=== PATIENT | female | born 1980 | race Caucasian/White ===

== ENCOUNTER 2019-01-03 01:54 | Emergency (ER) | payer OTHER, MEDICAID, SELFPAY ==
[2019-01-03 02:07] VITALS: BP 147/100; PULSE 101; RESP 20; TEMP 36.6; O2SAT 99; BMI 39.0
--- NOTE | 2019-01-03 03:00 | ED.FEMALEGU ---
HPI - Female Genitourinary General Chief complaint: Urogenital-Female Stated complaint: INTER CLABIA ITCHES SWOLLEN Time Seen by Provider: 01/03/19 02:53 Source: patient Mode of arrival: ambulatory Limitations: no limitations History of Present Illness HPI Narrative: Patient is a 38-year-old female who presents with vaginal itching and swelling. She said she noticed some itching this afternoon no gross discharge or foul smells. This evening after her shower she noticed that her right labia minora was slightly swollen and she said it felt hard to her. She is in continues to itch. She has not had any fever chills no painful or frequent urination. MD Complaint: genital swelling Onset (ago): hour(s) Location: labia Severity: mild Quality: Itching Related Data Previous Rx's Medication Instructions Recorded fluconazole [Diflucan] 200 mg PO DAILY #1 tab 01/03/19 Review of Systems Review of Systems ROS Unobtainable: All systems reviewed & are unremarkable except as noted in HPI and below Constitutional Denies chills, Denies fever(s), Denies lethargy and Denies weakness Cardiovascular Denies chest pain, Denies irregular heart rhythm, Denies lightheadedness, Denies palpitations, Denies dyspnea, Denies dyspnea on exertion and Denies orthopnea Respiratory Denies cough, Denies dyspnea, Denies dyspnea on exertion and Denies wheezing Gastrointestinal Gastrointestinal: Denies abdominal pain, Denies change in bowel habits, Denies diarrhea, Denies nausea and Denies vomiting Genitourinary Reports as per HPI Musculoskeletal Denies back pain, Denies muscle weakness, Denies numbness and Denies tingling Integumentary/Breasts Denies pruritus, Denies erythema, Denies rash and Denies wounds Neurologic Denies numbness, Denies tingling and Denies weakness Endocrine Denies palpitations Allergic/Immunologic Denies wheezing FORMERLY [facility] Medical History Patient denies significant medical history (Acute) Social History Smoking Status: Never smoker Social History Smoking Status: Never smoker Exam Initial Vital Signs Initial Vital Signs: Vital Signs Temperature 98 F 01/03/19 02:07 Pulse Rate 101 H 01/03/19 02:07 Respiratory Rate 20 01/03/19 02:07 Blood Pressure 147/100 H 01/03/19 02:07 Pulse Oximetry 99 01/03/19 02:07 GENERAL: Well-appearing, well-nourished and in no acute distress. CARDIOVASCULAR: peripheral pulses in tact, cap refill <2 sec RESPIRATORY: No respiratory distress, speaks in full sentences without difficulty [ABDOMEN: Soft, nontender, no guarding or rebound : slight white discharge not thick or right labia minora is slightly thickened is no fluctuation nontender EXTREMITIES: Normal range of motion, no clubbing or edema. Neurovascularly intact NEUROLOGICAL: Cranial nerves II through XII grossly intact. Normal gait and speech. SKIN: Warm, dry, no petechiae, no rashes or lesions. Course Vital Signs - 8 hr 01/03/19 02:07 01/03/19 03:34 Temperature 98 F Pulse Rate 101 H 88 Respiratory Rate 20 18 Blood Pressure 147/100 H 138/88 Pulse Oximetry 99 99 MDM - Female Genitourinary Lab Data Point of Care Testing Test Results Negative Urine Dip Bedside Urine Glucose Negative Bedside Urine Bilirubin - Negative Bedside Urine Ketone - Negative Urine Specific [place] 1.010 Bedside Urine Occult Blood + Bedside Urine pH 6.0 Bedside Urine Protein - Negative Bedside Urine Urobilinogen - Negative Bedside Urine Nitrite - Negative Bedside Urine Leukocytes - Negative Esterase Discharge Plan Departure Patient Disposition: Home Clinical Impression: Candidiasis of vagina Discharge Date/Time: 01/03/19 03:34 Interventions: ED Discharge Assessment Last Done: 01/03/19 03:34 Instructions: Vaginal Yeast Infection Activity Restrictions/Additional Instructions: *You have been diagnosed with vaginal candidiasis *What to do: at this time likely yeast infection. if itching in symptoms are worsening or still persisting recommend following up with her PCP or OBGYN *Continue to take medications as directed Diflucan 200 mg x1 *Follow up with your primary care provider in 2-3 days *Return to ER if you should have worsening itching, increased swelling or pain or any new, worsening or concerning symptoms Prescriptions: New fluconazole [Diflucan] 200 mg tablet 200 mg PO DAILY Qty: 1 RF: 0
[2019-01-03 03:34] VITALS: BP 138/88; PULSE 88; RESP 18; O2SAT 99
== END 2019-01-03 03:34 | disposition home or self-care (01) ==
PROVIDERS: Emergency Provider Emergency Medicine
DX: B37.3 Candidiasis of vulva and vagina (principal)
CPT/HCPCS: 81003; 81025; 99282; 99283

== ENCOUNTER 2019-01-10 20:55 | Emergency (ER) | payer OTHER, MEDICAID, SELFPAY ==
[2019-01-10 21:05] VITALS: BP 159/84; PULSE 102; RESP 20; TEMP 36.9; O2SAT 96; BMI 38.9
--- NOTE | 2019-01-10 21:12 | ED.FEMALEGU ---
HPI - Female Genitourinary <Shannan Burt PA-C - Last Filed: 01/10/19 21:59> General Chief complaint: Urogenital-Female Stated complaint: Pain and swollen labia Time Seen by Provider: 01/10/19 21:11 Source: patient Mode of arrival: ambulatory Limitations: no limitations History of Present Illness HPI Narrative: This 38-year-old female returns to ED after seen last week due to persistent right labial area pain. She states that last week, she had some itching and that got better after taking Diflucan. She felt like there was a little nodule or some firmness in the area that she describes as a knot. she thinks maybe that got a little bit worse since last week. It is tender. She states that she has been working out and today feels like she needs to walk bowlegged secondary to the irritation. She states that she looked and there was some swelling, like a blood blister. She states that this drained while she was showering, some blood and maybe some pus. 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 She states that she has been wearing loose shorts when she works out. She denies any urinary symptoms. Denies any STD concerns or discharge (she has never been sexually active). She has not had fever, denies other lesions or other new complaints. She does not have a local PCP. Related Data Previous Rx's Medication Instructions Recorded fluconazole [Diflucan] 200 mg PO DAILY #1 tab 01/03/19 sulfamethoxazole-trimethoprim 1 tab PO BID 6 Days #12 tab 01/10/19 [Bactrim DS] Allergies Allergy/AdvReac Type Severity Reaction Status Date / Time No Known Drug Allergies Allergy Verified 01/10/19 21:05 Review of Systems <Shanann Burt PA-C - Last Filed: 01/10/19 21:59> Review of Systems ROS Unobtainable: All systems reviewed & are unremarkable except as noted in HPI and below PFSH <Shannan Burt PA-C - Last Filed: 01/10/19 21:59> Medical History No pertinent family history (Chronic) Patient denies significant medical history (Chronic) Surgical History No pertinent past surgical history (Chronic) Social History Smoking Status: Never smoker Social History Smoking Status: Never smoker Exam <Shannan Burt PA-C - Last Filed: 01/10/19 21:59> Narrative Exam Narrative: GENERAL APPEARANCE: Patient sitting comfortably, in no distress. LUNGS: Clear to auscultation bilaterally. HEART: Rate and rhythm regular without murmur, normal S1 and S2, no S3 or S4. : Right inner labia there is a 5 mm erythematous nodule, slightly indurated, no fluctuance, tender to touch. There is a small central opening with a scab on the medial side. No surrounding erythema. Unable to express any drainage. No other visible lesions. There is a scant amount of opaque mucoid discharge noted. Initial Vital Signs Initial Vital Signs: Vital Signs Temperature 98.4 F 01/10/19 21:05 Pulse Rate 102 H 01/10/19 21:05 Respiratory Rate 20 01/10/19 21:05 Blood Pressure 159/84 H 01/10/19 21:05 Pulse Oximetry 96 01/10/19 21:05 <Jeffrey Haque DO - Last Filed: 01/11/19 00:58> Initial Vital Signs Initial Vital Signs: Vital Signs Temperature 98.4 F 01/10/19 21:05 Pulse Rate 102 H 01/10/19 21:05 Respiratory Rate 20 01/10/19 21:05 Blood Pressure 159/84 H 01/10/19 21:05 Pulse Oximetry 96 01/10/19 21:05 Course <Shannan Burt PA-C - Last Filed: 01/10/19 21:59> Orders Ordered: Discontinued Medications Ibuprofen (Advil) 800 mg PO NOW ONE Stop: 01/10/19 21:32 Last Admin: 01/10/19 21:52 Dose: 800 mg Trimethoprim/Sulfamethoxazole (Bactrim Ds Prepack) 1 bottle MISC SEEINSTR ONE Stop: 01/10/19 21:32 Last Admin: 01/10/19 21:53 Dose: 1 bottle Vital Signs - 8 hr 01/10/19 21:05 01/10/19 22:07 Temperature 98.4 F Pulse Rate 102 H 96 H Respiratory Rate 20 14 Blood Pressure 159/84 H 128/71 Pulse Oximetry 96 95 <Jeffrey [place], DO - Last Filed: 01/11/19 00:58> Orders Ordered: Discontinued Medications Ibuprofen (Advil) 800 mg PO NOW ONE Stop: 01/10/19 21:32 Last Admin: 01/10/19 21:52 Dose: 800 mg Trimethoprim/Sulfamethoxazole (Bactrim Ds Prepack) 1 bottle MISC SEEINSTR ONE Stop: 01/10/19 21:32 Last Admin: 01/10/19 21:53 Dose: 1 bottle Vital Signs - 8 hr 01/10/19 21:05 01/10/19 22:07 Temperature 98.4 F Pulse Rate 102 H 96 H Respiratory Rate 20 14 Blood Pressure 159/84 H 128/71 Pulse Oximetry 96 95 Discharge Plan Departure Patient Disposition: Home Clinical Impression: Abscess of right genital labia Discharge Date/Time: 01/10/19 22:07 Interventions: ED Discharge Assessment Last Done: 01/10/19 22:07 Instructions: DI for Vulvar Abscess Activity Restrictions/Additional Instructions: Based on exam and what you have described to me today, I think you had a very small abscess on your right labia. It sounds like this drained partially while you were in the shower. Please use a hot washcloth on the area several times daily (or you can take a warm bath) to help express any additional pus or drainage that may be present. Wear loose fitting clothing. You can use a little lubricant for irritation, or vaginosis ill if you prefer. Please take ibuprofen, 6-800 mg every 8 hr to help with pain and inflammation. 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 I also refilled your yeast infection medicine as sometimes antibiotics will cause yeast infections to come back. You can restart that medication if you notice discharge and itching again. You can take it every 3 days (up to 3 doses). Please return if you have any acutely worsening swelling over the weekend or new symptoms such as fever. Otherwise, please call the Gynecology Clinic at [facility] 1st thing on Sunday. Let them know that you were seen at the emergency room and need to arrange a follow-up (you should Sunday or Sunday if you are not making progress by then in terms of pain and swelling). I have given you Dr. Crouch's name as she is process control programmer [facility] but you can see any of the doctors there. Prescriptions: New sulfamethoxazole-trimethoprim [Bactrim DS] 800-160 mg tablet 1 tab PO BID 6 Days Qty: 12 RF: 0 No Action fluconazole [Diflucan] 200 mg tablet 200 mg PO DAILY Qty: 1 RF: 0 Referrals: Sara Crouch MD [Physician] - <Jeffrey Haque DO - Last Filed: 01/11/19 00:58> Cosign ED Attending Arunaature Attestation: I was immediately available in the department for consultation. Documentation has been reviewed. I agree with assessment and plan.
--- NOTE | 2019-01-10 21:49 | ED_ITS ---
HPI - Female Genitourinary <Shannan Burt PA-C - Last Filed: 01/10/19 21:59> General Chief complaint: Urogenital-Female Stated complaint: Pain and swollen labia Time Seen by Provider: 01/10/19 21:11 Source: patient Mode of arrival: ambulatory Limitations: no limitations History of Present Illness HPI Narrative: This 38-year-old female returns to ED after seen last week due to persistent right labial area pain. She states that last week, she had some itching and that got better after taking Diflucan. She felt like there was a little nodule or some firmness in the area that she describes as a knot. she thinks maybe that got a little bit worse since last week. It is tender. She states that she has been working out and today feels like she needs to walk bowlegged secondary to the irritation. She states that she looked and there was some swelling, like a blood blister. She states that this drained while she was showering, some blood and maybe some pus. 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 She states that she has been wearing loose shorts when she works out. She denies any urinary symptoms. Denies any STD concerns or discharge (she has never been sexually active). She has not had fever, denies other lesions or other new complaints. She does not have a local PCP. Related Data Previous Rx's Medication Instructions Recorded fluconazole [Diflucan] 200 mg PO DAILY #1 tab 01/03/19 sulfamethoxazole-trimethoprim 1 tab PO BID 6 Days #12 tab 01/10/19 [Bactrim DS] Allergies Allergy/AdvReac Type Severity Reaction Status Date / Time No Known Drug Allergies Allergy Verified 01/10/19 21:05 Review of Systems <Shannan Burt PA-C - Last Filed: 01/10/19 21:59> Review of Systems ROS Unobtainable: All systems reviewed & are unremarkable except as noted in HPI and below PFSH <Shannan Burt PA-C - Last Filed: 01/10/19 21:59> Medical History No pertinent family history (Chronic) Patient denies significant medical history (Chronic) Surgical History No pertinent past surgical history (Chronic) Social History Smoking Status: Never smoker Social History Smoking Status: Never smoker Exam <Shannan Burt PA-C - Last Filed: 01/10/19 21:59> Narrative Exam Narrative: GENERAL APPEARANCE: Patient sitting comfortably, in no distress. LUNGS: Clear to auscultation bilaterally. HEART: Rate and rhythm regular without murmur, normal S1 and S2, no S3 or S4. : Right inner labia there is a 5 mm erythematous nodule, slightly indurated, no fluctuance, tender to touch. There is a small central opening with a scab on the medial side. No surrounding erythema. Unable to express any drainage. No other visible lesions. There is a scant amount of opaque mucoid discharge noted. Initial Vital Signs Initial Vital Signs: Vital Signs Temperature 98.4 F 01/10/19 21:05 Pulse Rate 102 H 01/10/19 21:05 Respiratory Rate 20 01/10/19 21:05 Blood Pressure 159/84 H 01/10/19 21:05 Pulse Oximetry 96 01/10/19 21:05 <Jeffrey Haque DO - Last Filed: 01/11/19 00:58> Initial Vital Signs Initial Vital Signs: Vital Signs Temperature 98.4 F 01/10/19 21:05 Pulse Rate 102 H 01/10/19 21:05 Respiratory Rate 20 01/10/19 21:05 Blood Pressure 159/84 H 01/10/19 21:05 Pulse Oximetry 96 01/10/19 21:05 Course <Shannan Burt PA-C - Last Filed: 01/10/19 21:59> Orders Ordered: Discontinued Medications Ibuprofen (Advil) 800 mg PO NOW ONE Stop: 01/10/19 21:32 Last Admin: 01/10/19 21:52 Dose: 800 mg Trimethoprim/Sulfamethoxazole (Bactrim Ds Prepack) 1 bottle MISC SEEINSTR ONE Stop: 01/10/19 21:32 Last Admin: 01/10/19 21:53 Dose: 1 bottle Vital Signs - 8 hr 01/10/19 21:05 01/10/19 22:07 Temperature 98.4 F Pulse Rate 102 H 96 H Respiratory Rate 20 14 Blood Pressure 159/84 H 128/71 Pulse Oximetry 96 95 <Jeffrey [place], DO - Last Filed: 01/11/19 00:58> Orders Ordered: Discontinued Medications Ibuprofen (Advil) 800 mg PO NOW ONE Stop: 01/10/19 21:32 Last Admin: 01/10/19 21:52 Dose: 800 mg Trimethoprim/Sulfamethoxazole (Bactrim Ds Prepack) 1 bottle MISC SEEINSTR ONE Stop: 01/10/19 21:32 Last Admin: 01/10/19 21:53 Dose: 1 bottle Vital Signs - 8 hr 01/10/19 21:05 01/10/19 22:07 Temperature 98.4 F Pulse Rate 102 H 96 H Respiratory Rate 20 14 Blood Pressure 159/84 H 128/71 Pulse Oximetry 96 95 Discharge Plan Departure Patient Disposition: Home Clinical Impression: Abscess of right genital labia Discharge Date/Time: 01/10/19 22:07 Interventions: ED Discharge Assessment Last Done: 01/10/19 22:07 Instructions: DI for Vulvar Abscess Activity Restrictions/Additional Instructions: Based on exam and what you have described to me today, I think you had a very small abscess on your right labia. It sounds like this drained partially while you were in the shower. Please use a hot washcloth on the area several times daily (or you can take a warm bath) to help express any additional pus or drainage that may be present. Wear loose fitting clothing. You can use a little lubricant for irritation, or vaginosis ill if you prefer. Please take ibuprofen, 6-800 mg every 8 hr to help with pain and inflammation. Take the 2nd dose of antibiotic that we gave you in the morning, and order picker the rest of the prescription at the pharmacy tomorrow. I also refilled your yeast infection medicine as sometimes antibiotics will cause yeast infections to come back. You can restart that medication if you notice discharge and itching again. You can take it every 3 days (up to 3 doses). Please return if you have any acutely worsening swelling over the weekend or new symptoms such as fever. Otherwise, please call the Gynecology Clinic at [facility] 1st thing on Sunday. Let them know that you were seen at the emergency room and need to ar range a follow-up (you should Sunday or Sunday if you are not making progress by then in terms of pain and swelling). I have given you Dr. Crouch's name as she is sail repair person [facility] but you can see any of the doctors there. Prescriptions: New sulfamethoxazole-trimethoprim [Bactrim DS] 800-160 mg tablet 1 tab PO BID 6 Days Qty: 12 RF: 0 No Action fluconazole [Diflucan] 200 mg tablet 200 mg PO DAILY Qty: 1 RF: 0 Referrals: Sara Crouch MD [Physician] - <Jeffrey Haque DO - Last Filed: 01/11/19 00:58> Cosign ED Attending Arunaature Attestation: I was immediately available in the department for consultation. Documentation has been reviewed. I agree with assessment and plan.
[2019-01-10] MEDS: IBUPROFEN 400 MG TABLET 800 MG PO (21:52)
[2019-01-10] MEDS: TRIMETH/SULFA 160/800 PREPACK 1 BOTTLE MISC (21:53)
--- NOTE | 2019-01-10 21:59 | PC.NURSE ---
I agree with all assessments and treatments completed by the student nurse.
--- NOTE | 2019-01-10 22:06 | PC.NURSE ---
Pt had swelling and a small abscess on her right labia that had already been partially drained.
[2019-01-10 22:07] VITALS: BP 128/71; PULSE 96; RESP 14; O2SAT 95
== END 2019-01-10 22:07 | disposition home or self-care (01) ==
PROVIDERS: Emergency Provider Internal Medicine
DX: N76.4 Abscess of vulva (principal)
CPT/HCPCS: 99282

== ENCOUNTER 2021-06-15 10:07 | Emergency (ER) | payer OTHER, SELFPAY ==
[2021-06-15 10:14] VITALS: BP 135/77; PULSE 99; RESP 20; TEMP 38.1; O2SAT 90; BMI 40.3
[2021-06-15 10:15] VITALS: BP 135/77; PULSE 99; O2SAT 92
[2021-06-15 10:23] VITALS: O2SAT 93
[2021-06-15 10:30] VITALS: PULSE 83; O2SAT 93
--- NOTE | 2021-06-15 10:44 | ED.URI ---
HPI - URI/Sore Throat General Chief Complaint: Shortness of Breath/Dyspnea Stated Complaint: SOB/FEVER/DRY HEAVES/NAUSEA Time Seen by Provider: 06/15/21 10:26 Source: patient Mode of arrival: Ambulatory Limitations: no limitations History of Present Illness HPI Narrative: Patient is a 40-year-old female who has a known COVID positive patient.. Here with her mother who is requiring oxygen. She states that she has been feeling nauseous she has fever she denies any worsening shortness of breath or chest pain. She is not vomiting no abdominal pain. Trying to drink fluids but feels queasy. Related Data Previous Rx's Medication Instructions Recorded fluconazole 200 mg tablet 200 mg PO DAILY #1 tab 01/03/19 (Diflucan) ondansetron 4 mg disintegrating 4 mg PO Q8H PRN #10 tab 06/15/21 tablet Allergies Allergy/AdvReac Type Severity Reaction Status Date / Time No Known Drug Allergies Allergy Verified 06/15/21 10:18 Review of Systems Review of Systems Narrative: GENERAL: Denies chills, fatigue, malaise, fever, sweats, travel HEENT: Denies sinus pain, ear pain, sore throat, difficulty swallowing, neck pain RESPIRATORY: Denies dyspnea, cough, wheezing, hemoptysis, sputum. CARDIOVASCULAR: Denies chest pain, palpitations, orthopnea, edema GASTROINTESTINAL: See HPI : Denies dysuria, frequency, incontinence, hematuria, urinary retention, flank pain. MUSCULOSKELETAL: Denies weakness, joint pain, or bony pain SKIN: No rash, no erythema, no pruritus NEUROLOGIC: Denies weakness, dizziness, headache, numbness, change in speech, confusion PSYCHIATRIC: No concerning psychosocial issues. 12 point review of systems is negative except for those stated above and HPI Patient History Medical History (Updated 06/15/21 @ 10:59 by Alecia Ryan DO) No pertinent family history Patient denies significant medical history Surgical History (Updated 01/10/19 @ 21:47 by Shannan Burt PA-C) No pertinent past surgical history Social History Smoking Status: Never smoker Smoking Status: Never smoker alcohol intake frequency: holidays/special occasions only Substance Use Type: does not use Exam Initial Vital Signs Initial Vital Signs: Vital Signs Temperature 100.6 F H 06/15/21 10:14 Pulse Rate 99 H 06/15/21 10:14 Respiratory Rate 20 06/15/21 10:14 Blood Pressure 135/77 06/15/21 10:14 Pulse Oximetry 90 L 06/15/21 10:14 GENERAL: Well-appearing, well-nourished and in no acute distress. HEENT: Head atraumatic,EOMI, pupils reactive, face symmetric, CARDIOVASCULAR: Regular rate and rhythm without murmurs, rubs or gallops. RESPIRATORY: Breath sounds equal bilaterally, no wheezes rales or rhonchi. ABDOMEN: Soft, nontender. Normoactive bowel sounds all 4 quadrants. No guarding or rebound. No right upper quadrant EXTREMITIES: Normal range of motion, no clubbing or edema. Neurovascularly intact NEUROLOGICAL: Alert and oriented x4. SKIN: Warm, dry, no laceration, no petechiae, no rashes or lesions. Course Orders Ordered: Discontinued Medications Ondansetron HCl (Ondansetron 4 Mg Odt) 4 mg SL NOW ONE Stop: 06/15/21 10:45 Last Admin: 06/15/21 10:51 Dose: 4 mg Documented by: MELISSA Vital Signs Vital signs: Vital Signs - 8 hr 06/15/21 10:14 06/15/21 10:23 Temperature 100.6 F H Pulse Rate 99 H Respiratory Rate 20 Blood Pressure 135/77 Pulse Oximetry 90 L 93 MDM - URI/Sore Throat MDM Narrative Medical decision making narrative: Well. She is COVID positive low-grade fever. Not requiring oxygen. At this time discussed with her quarantine and how to monitor at home. And return to the emergency department. Discharge Plan Departure Patient Disposition: Home Clinical Impression: COVID-19 Instructions: DI for COVID-19 (Suspected or Confirmed ) Activity Restrictions/Additional Instructions: *You have been diagnosed with COVID pneumonia *What to do: Please continue to quarantine. Stay hydrated. You will continue to feel ill but should start to be on the mend. At this time you do not meet admission criteria. It is still recommended that you get vaccinated and in fact strongly encouraged. Check oxygen intermittently *Continue to take medications as directed Zofran 4 mg every 8 hours if needed for nausea or vomiting--> SENT TO [facility] [place] Tylenol 1000 mg every 6 hours if needed for pain or fever *Follow up with your primary care provider in 2-3 days *Return to ER if you should have oxygen level below 90%, inability to tolerate fluids, or any new, worsening or concerning symptoms Prescriptions: New ondansetron 4 mg tablet,disintegrating 4 mg PO Q8H PRN (Reason: nausea and vomiting) Qty: 10 RF: 0 No Action fluconazole [Diflucan] 200 mg tablet 200 mg PO DAILY Qty: 1 RF: 0
[2021-06-15] MEDS: ONDANSETRON 4 MG ODT SL (10:51)
[2021-06-15 11:00] VITALS: PULSE 91; O2SAT 91
[2021-06-15 11:20] VITALS: BP 135/73; PULSE 85; RESP 18; O2SAT 91
== END 2021-06-15 11:24 | disposition home or self-care (01) ==
PROVIDERS: Emergency Provider Emergency Medicine
DX: U07.1 COVID-19 (principal)
CPT/HCPCS: 99284

== ENCOUNTER 2021-06-16 07:15 | Inpatient (IN) | payer BC, SELFPAY ==
[2021-06-16] VITALS (12 sets, daily range): BP systolic 122–150; BP diastolic 68–78; PULSE 80–103; RESP 15–24; TEMP 35.9–37.4; O2SAT 85–95; BMI 49.9; BMI 38.3
--- NOTE | 2021-06-16 07:22 | ED_ITS ---
HPI - SOB/Dyspnea General Chief Complaint: Shortness of Breath/Dyspnea Stated Complaint: DIFFICULTY BREATHING Time Seen by Provider: 06/16/21 07:22 History of Present Illness HPI Narrative: 40-year-old female nonsmoker presents with fever, chills shortness of breath and weakness. She has known COVID-19 and was not vaccinated. She was 1st exposed about 1 week ago and became symptomatic on Sunday and was tested. She started getting increasingly sick and was seen and evaluated here yesterday but had reassuring physical exam and vital signs. She was discharged home with appropriate return precautions. She returns feeling quite short of breath, high respiratory rate with pulse ox in the low 80s. She does have some nausea but denies any vomiting. She has had poor appetite. She has multiple family members that are ill as well Related Data Previous Rx's Medication Instructions Recorded fluconazole 200 mg tablet 200 mg PO DAILY #1 tab 01/03/19 (Diflucan) ondansetron 4 mg disintegrating 4 mg PO Q8H PRN #10 tab 06/15/21 tablet Allergies Allergy/AdvReac Type Severity Reaction Status Date / Time No Known Drug Allergies Allergy Verified 06/15/21 10:18 Review of Systems Review of Systems Narrative: GENERAL: See HPI HEENT: Denies sinus pain, ear pain, sore throat, difficulty swallowing, dizziness. RESPIRATORY: See HPI CARDIOVASCULAR: Denies chest pain, palpitations, orthopnea, edema, GASTROINTESTINAL: See HPI a. : Denies dysuria, frequency, incontinence, hematuria, urinary retention. MUSCULOSKELETAL: denies weakness, joint pain, or bony pain SKIN: Denies rash, skin lesions, or other NEUROLOGIC: Denies weakness, headache, numbness, change in speech, confusion, seizures, incoordination. PSYCHIATRIC: No concerning psychosocial issues. 12 point review of systems is negative except for those stated above Patient History Medical History No pertinent family history Patient denies significant medical history Surgical History No pertinent past surgical history Social History Smoking Status: Never smoker Smoking Status: Never smoker alcohol intake frequency: holidays/special occasions only Substance Use Type: does not use Exam Narrative Exam Narrative: GENERAL: [40] year old patient appears stated age. Appears unwell, increased work of breathing, room air pulse ox 84% on arrival HEAD: Atraumatic. Normocephalic. EYES: Pupils equal round and reactive. Extraocular motions intact. No scleral icterus. No injection or drainage. ENT: Nose without bleeding, purulent drainage. Throat without erythema, tonsillar hypertrophy or exudate. Airway patent. NECK: Trachea midline. Non tender CARDIOVASCULAR: Regular rate and rhythm without murmurs, gallops, or rubs. RESPIRATORY: Tachypnea, use of accessories, faint crackles throughout GASTROINTESTINAL: Abdomen soft, non-tender, nondistended. EXTREMITIES: No edema or joint tenderness. BACK: Nontender without deformity or crepitance. No flank tenderness. NEURO: AOx3. SKIN: No rash or erythema of visible areas Initial Vital Signs Initial Vital Signs: Vital Signs Pulse Rate 85 06/16/21 07:31 Blood Pressure 150/78 H 06/16/21 07:31 Pulse Oximetry 85 L 06/16/21 07:31 Course Orders Ordered: ED Orders 06/16/21 07:34 XR chest 1V Stat 06/16/21 07:40 C-Reactive Protein Quant Stat Complete Blood Count AUTO DIFF Stat Comprehensive Metabolic Panel Stat D Dimer Stat Ferritin Stat Lactate (Lactic Acid) Stat Lactate Dehydrogenase Stat NT-proBNP (BNP-Adult 18+) Stat Procalcitonin Stat Troponin & CK Cardiac Panel Stat 06/16/21 08:30 Blood Culture Stat Discontinued Medications Dexamethasone (Dexamethasone 10 Mg/Ml Vial) 6 mg IV NOW ONE Stop: 06/16/21 07:37 Last Admin: 06/16/21 08:35 Dose: 6 mg Documented by: MELISSA Remdesivir 200 mg/ Sodium (Chloride) 250 mls @ 250 mls/hr IV NOW ONE Stop: 06/16/21 07:37 Last Admin: 06/16/21 08:35 Dose: 250 mls/hr Documented by: MELISSA Vital Signs Vital signs: Vital Signs - 8 hr 06/16/21 07:31 06/16/21 07:35 06/16/21 08:00 Temperature 99.4 F Pulse Rate 85 103 H 95 H Respiratory Rate 24 24 Blood Pressure 150/78 H 150/76 H 126/75 Pulse Oximetry 85 L 85 L 95 07/29/21 08:30 Temperature Pulse Rate 89 Respiratory Rate 23 Blood Pressure 128/71 Pulse Oximetry 94 MDM - SOB/Dyspnea Lab Data Result diagrams: 06/16/21 07:40 06/16/21 07:40 Labs: Lab Results 06/16/21 06/16/21 06/16/21 Range/Units 07:40 07:40 07:40 WBC 5.2 (4.5-11.0) X10^3/uL RBC 4.51 (4.0-5.2) X10^6/uL Hgb 13.9 (12.0-16.0) g/dL Hct 41.1 (36-46) % MCV 91.2 (80-100) fL MCH 30.8 (26-34) PG MCHC 33.8 (30-36) % RDW 13.3 (11.6-14.8) % Plt Count 170 (150-400) X10^3/uL Neut % (Auto) 68.5 (50-75) % Lymph % (Auto) 28.8 (25-40) % [place] % (Auto) 2.5 L (3-14) % Eos % (Auto) 0.0 L (2-4) % Baso % (Auto) 0.2 (0-2) % Neut # (Auto) 3600 (5118-5594) /uL Lymph # (Auto) 1500 (8278-3297) /uL [place] # (Auto) 100 (0-900) /uL Eos # (Auto) 0 (0-450) /uL Baso # (Auto) 0 (0-100) /uL D-Dimer 740 H (<230) ng/mL Sodium (137-145) mmol/L Potassium (3.4-5.1) mmol/L Chloride (98-107) mmol/L Carbon Dioxide (22-32) mmol/L BUN (7-17) mg/dL Creatinine (0.52-1.04) mg/dL Estimated GFR (>60) mL/min BUN/Creatinine Ratio (6-22) Glucose (70-100) mg/dL Lactate (0.7-2.1) mmol/L Calcium (8.4-10.2) mg/dL Ferritin (6-137) ng/mL Total Bilirubin (0.2-1.3) mg/dL AST (14-36) IU/L ALT (<35) IU/L Alkaline Phosphatase (38-126) U/L Lactate Dehydrogenase (313-618) U/L Total Creatine Kinase (30-135) U/L CK-MB (CK-2) CK-MB (CK-2) Rel Index Troponin I (0.01-0.034) ng/mL C-Reactive Protein (<1.0) mg/dL NT-Pro-B Natriuret Pep (<125) pg/mL Total Protein (6.3-8.2) g/dL Albumin (3.5-5.0) g/dL Globulin (1.7-4.1) g/dL Albumin/Globulin Ratio (1.0-2.8) Procalcitonin 0.24 (<0.5) ng/mL 06/16/21 06/16/21 Range/Units 07:40 07:40 WBC (4.5-11.0) X10^3/uL RBC (4.0-5.2) X10^6/uL Hgb (12.0-16.0) g/dL Hct (36-46) % MCV (80-100) fL MCH (26-34) PG MCHC (30-36) % RDW (11.6-14.8) % Plt Count (150-400) X10^3/uL Neut % (Auto) (50-75) % Lymph % (Auto) (25-40) % [place] % (Auto) (3-14) % Eos % (Auto) (2-4) % Baso % (Auto) (0-2) % Neut # (Auto) (3580-4340) /uL Lymph # (Auto) (0758-8195) /uL [place] # (Auto) (0-900) /uL Eos # (Auto) (0-450) /uL Baso # (Auto) (0-100) /uL D-Dimer (<230) ng/mL Sodium 135 L (137-145) mmol/L Potassium 3.2 L (3.4-5.1) mmol/L Chloride 102 (98-107) mmol/L Carbon Dioxide 23 (22-32) mmol/L BUN 6 L (7-17) mg/dL Creatinine 0.86 (0.52-1.04) mg/dL Estimated GFR > 60.0 (>60) mL/min BUN/Creatinine Ratio 7.0 (6-22) Glucose 120 H (70-100) mg/dL Lactate 0.9 (0.7-2.1) mmol/L Calcium 8.1 L (8.4-10.2) mg/dL Ferritin 463 H (6-137) ng/mL Total Bilirubin 0.3 (0.2-1.3) mg/dL AST 60 H (14-36) IU/L ALT 50 H (<35) IU/L Alkaline Phosphatase 70 (38-126) U/L Lactate Dehydrogenase 938 H (313-618) U/L Total Creatine Kinase 43 (30-135) U/L CK-MB (CK-2) TNP CK-MB (CK-2) Rel Index TNP Troponin I < 0.012 (0.01-0.034) ng/mL C-Reactive Protein 18.1 H (<1.0) mg/dL NT-Pro-B Natriuret Pep 54 (<125) pg/mL Total Protein 7.3 (6.3-8.2) g/dL Albumin 3.8 (3.5-5.0) g/dL Globulin 3.5 (1.7-4.1) g/dL Albumin/Globulin Ratio 1.1 (1.0-2.8) Procalcitonin (<0.5) ng/mL Imaging Data Chest x-ray: Radiologist's Impression: Tiffany Knutson Tracey 40 F [address] [id number] ReportSigned Patient: Tiffany Knutson Tracey#: [id number]: 1980Acct:[id number]/Sex: 40 / FDate of Service: 06/16/21Loc: EDAccession Number: [id number] Procedure: XR chest 1V Ordering Provider: Jeffrey Haque D.O. PROCEDURE: XR CHEST 1V INDICATIONS: flu-like symptoms TECHNIQUE: One view of the chest was acquired. COMPARISON: None. FINDINGS: Surgical changes and devices: None. Lungs and pleura: No pleural effusions or pneumothorax. Low lung volumes and ill-defined patchy consolidative opacities in the retrocardiac region. Mediastinum: Mediastinal contours appear normal. Heart size is normal. Bones and chest wall: No suspicious bony lesions. Overlying soft tissues appear unremarkable. IMPRESSION: Ill-defined patchy consolidative opacities involving the retrocardiac left lower lobe, most suspicious for pneumonia. Low lung volumes. Dictated by: Osiel Argueta M.D. on 06/16/2021 at 8:42 Approved by: Osiel Argueta M.D. on 06/16/2021 at 8:43 Discharge Plan Departure Patient Disposition: Admitted As Inpatient Prescriptions: No Action ondansetron 4 mg tablet,disintegrating 4 mg PO Q8H PRN (Reason: nausea and vomiting) Qty: 10 RF: 0 fluconazole [Diflucan] 200 mg tablet 200 mg PO DAILY Qty: 1 RF: 0 Admit Date/Time: 06/16/21 09:22
--- NOTE | 2021-06-16 07:34 | DI.RAD.S_ITS ---
PROCEDURE: XR CHEST 1V INDICATIONS: flu-like symptoms TECHNIQUE: One view of the chest was acquired. COMPARISON: None. FINDINGS: Surgical changes and devices: None. Lungs and pleura: No pleural effusions or pneumothorax. Low lung volumes and ill-defined patchy consolidative opacities in the retrocardiac region. Mediastinum: Mediastinal contours appear normal. Heart size is normal. Bones and chest wall: No suspicious bony lesions. Overlying soft tissues appear unremarkable. IMPRESSION: Ill-defined patchy consolidative opacities involving the retrocardiac left lower lobe, most suspicious for pneumonia. Low lung volumes. Dictated by: Osiel Argueta M.D. on 06/16/2021 at 8:42 Approved by: Osiel Argueta M.D. on 06/16/2021 at 8:43
[2021-06-16 07:57] LABS: Add Manual Diff / Slide Review NO; Basophils Absolute Auto 0 /uL (0-100); Basophils Percent Auto 0.2 % (0-2); Eosinophils Absolute Auto 0 /uL (0-450); Hematocrit 41.1 % (36-46); Hemoglobin 13.9 g/dL (12.0-16.0); Lymphocytes Absolute Auto 1500 /uL (1100-4500); Lymphocytes Percent Auto 28.8 % (25-40); Mean Corpuscular HGB Conc 33.8 % (30-36); Mean Corpuscular Hemoglobin 30.8 PG (26-34); Mean Corpuscular Volume 91.2 fL (80-100); Monocytes Absolute Auto 100 /uL (0-900); Monocytes Percent Auto 2.5 % (3-14); Neutrophils Absolute Auto 3600 /uL (1500-7000); Neutrophils Percent Auto 68.5 % (50-75); Platelet Count 170 X10^3/uL (150-400); Red Blood Cell Count 4.51 X10^6/uL (4.0-5.2); Red Cell Distribution Width 13.3 % (11.6-14.8); White Blood Cell Count 5.2 X10^3/uL (4.5-11.0)
[2021-06-16 08:07] LABS: Alanine Aminotransferase 50 IU/L (<35); Albumin 3.8 g/dL (3.5-5.0); Albumin Globulin Ratio 1.1 (1.0-2.8); Alkaline Phosphatase 70 U/L (38-126); Aspartate Aminotransferase 60 IU/L (14-36); Bilirubin Total 0.3 mg/dL (0.2-1.3); Blood Urea Nitrogen 6 mg/dL (7-17); Calcium 8.1 mg/dL (8.4-10.2); Carbon Dioxide 23 mmol/L (22-32); Chloride 102 mmol/L (98-107); Creatine Kinase 43 U/L (30-135); D Dimer 740 ng/mL (<230); Estimated Glomerular Filt Rate > 60.0 mL/min (>60); Globulin 3.5 g/dL (1.7-4.1); Glucose 120 mg/dL (70-100); HEMOLYSIS < 15 (0-50); Potassium 3.2 mmol/L (3.4-5.1); Sodium 135 mmol/L (137-145); Total Protein 7.3 g/dL (6.3-8.2)
[2021-06-16 08:08] LABS: Lactate (Lactic Acid) 0.9 mmol/L (0.7-2.1)
[2021-06-16 08:20] LABS: NT-proBNP (BNP-Adult 18+) 54 pg/mL (<125); Troponin I < 0.012 ng/mL (0.01-0.034)
[2021-06-16 08:25] LABS: Procalcitonin 0.24 ng/mL (<0.5)
[2021-06-16 08:27] LABS: Lactate Dehydrogenase 938 U/L (313-618)
[2021-06-16] MEDS: DEXAMETHASONE 10 MG/ML VIAL 6 MG IV (08:35)
[2021-06-16] MEDS: REMDESIVIR 200 MG in SODIUM CHLORIDE 0.9% 210 ML 250 ML IV (08:35)
[2021-06-16 08:38] LABS: C-Reactive Protein Quant 18.1 mg/dL (<1.0)
[2021-06-16 08:43] LABS: Ferritin 463 ng/mL (6-137)
--- NOTE | 2021-06-16 15:59 | CM.DANOTE ---
Discharge Planning/Care Management DCP: assessment: Case received, EMR reviewed. Pt is a 40 year old female who admitted late this mornin with diagnosis of COVID 19 a week ago, worsening symptoms, admission yesterday to the ER with a d/c back home and a return to ER today and now with admission to ICU setting. Pt has not been vaccinated against COVID. She resides with her parents in [place] and her mother Beta has been in the ICU since 06/15 with similar presentation and same unvaccinated state. Hospitalist Dr. Garcia will be seeing pt today. No H & P is yet available for review. PCP: unknown at this time. Payer: [employer] Admission status: in review. P: discuss in Team Rounds tomorrow and follow up to continue to the assessment and planning process. CM Discharge Assessment Start: 06/16/21 13:21 Freq: Status: Active Protocol: Document 06/16/21 15:58 ITV (Rec: 06/16/21 15:59 ITV [id number]) Discharge Planning Assessment Advance Directives? No History Provided By Medical Record Prior Living Arrangements House Household Members family Independent with ADL's Yes Is patient alert and oriented? Yes Review Status In Process
[2021-06-16] MEDS: ACETAMINOPHEN 325 MG TABLET 650 MG PO (16:23)
--- NOTE | 2021-06-16 16:28 | P.HP_ITS ---
History of Present Illness History of Present Illness Chief complaint: DIFFICULTY BREATHING Narrative: The patient is a 40-year-old female who has not been vaccinated against COVID-19 who presents with a week of symptoms to include cough decreased appetite and decreased smell. The patient's mother is here hospitalized with COVID-19 pneumonia. In addition her father is in the emergency department with symptoms due to COVID-19. The patient has had some nausea and vomiting. She has had progressive shortness of breath. She has had nonproductive cough. She developed a low-grade fever. Patient was seen and examined in the emergency department. She was found to have a white count of 5.2. Chest x-ray showed ill-defined patchy consolidations suspicious for pneumonia. Patient did test positive for COVID-19. Patient History Medical History No pertinent family history Patient denies significant medical history Surgical History No pertinent past surgical history Family & Social History Family History (Updated 06/16/21 @ 16:33 by Su Garcia MD) Mother Pneumonia due to COVID-19 virus Father Pneumonia due to COVID-19 virus Social History: household members family Prior Living Arrangements House Safety & Behavioral: Feels Safe in Current Yes Environment Been Physically Hurt or No Threatened By a Person Suicidal Ideation Description None Suicide Plan Description No Plan Tobacco & Substance use: Smoking Status Never smoker alcohol intake frequency holiday/special occasion Substance Use Type does not use Meds Home Medications and Allergies Home Medications Medication Instructions Recorded Confirmed Type fluconazole 200 mg tablet 200 mg PO DAILY #1 tab 01/03/19 01/15/19 Rx (Diflucan) ondansetron 4 mg disintegrating 4 mg PO Q8H PRN #10 tab 06/15/21 Rx tablet Allergies Allergy/AdvReac Type Severity Reaction Status Date / Time No Known Drug Allergies Allergy Verified 06/15/21 10:18 Review of Systems Review of Systems Narrative: ROS is negative except as outlined above Exam Vital Signs (past 8 hours): - 06/16/21 08:30 06/16/21 09:00 06/16/21 09:52 Temperature Pulse Rate 89 87 82 Respiratory Rate 23 18 22 Blood Pressure 128/71 126/74 126/72 Pulse Oximetry 94 95 95 06/16/21 10:00 06/16/21 10:35 06/16/21 10:55 Temperature 98.2 F Pulse Rate 87 87 84 Respiratory Rate 24 24 22 Blood Pressure 128/68 130/74 129/77 Pulse Oximetry 95 95 89 L 06/16/21 11:58 Temperature Pulse Rate Respiratory Rate Blood Pressure Pulse Oximetry 92 Oxygen Delivery Method Nasal Cannula Oxygen Flow Rate 4.5 Narrative Exam Narrative: Ill appearing female in [facility] Other: Normocephalic atraumatic, extraocular muscles are intact, oropharynx is clear with moist mucous membranes Eyes Other: Sclerae anicteric Neck Other: Neck is supple without adenopathy or thyromegaly Resp Other: Lungs: Decreased breath sounds, with scattered end-expiratory rhonchi Cardio Other: Regular rate and rhythm normal S1-S2 GI Other: Abdomen soft nontender nondistended without hepatosplenomegaly, palpable masses, no board-like rigidity, Skin Other: No skin lesions noted Neuro Other: Nonfocal Extrem Other: No edema Psych Other: No hallucinations, delusions, or text Objective Labs Result Diagrams: 06/16/21 07:40 06/16/21 07:40 Labs: Laboratory Results - last 24 hr 06/16/21 06/16/21 06/16/21 07:40 07:40 07:40 WBC 5.2 RBC 4.51 Hgb 13.9 Hct 41.1 MCV 91.2 MCH 30.8 MCHC 33.8 RDW 13.3 Plt Count 170 Neut % (Auto) 68.5 Lymph % (Auto) 28.8 [place] % (Auto) 2.5 L Eos % (Auto) 0.0 L Baso % (Auto) 0.2 Neut # (Auto) 3600 Lymph # (Auto) 1500 [place] # (Auto) 100 Eos # (Auto) 0 Baso # (Auto) 0 D-Dimer 740 H Sodium Potassium Chloride Carbon Dioxide BUN Creatinine Estimated GFR BUN/Creatinine Ratio Glucose Lactate Calcium Ferritin Total Bilirubin AST ALT Alkaline Phosphatase Lactate Dehydrogenase Total Creatine Kinase CK-MB (CK-2) CK-MB (CK-2) Rel Index Troponin I C-Reactive Protein NT-Pro-B Natriuret Pep Total Protein Albumin Globulin Albumin/Globulin Ratio Procalcitonin 0.24 Nasal Screen MRSA (PCR) 06/16/21 06/16/21 06/16/21 07:40 07:40 11:00 WBC RBC Hgb Hct MCV MCH MCHC RDW Plt Count Neut % (Auto) Lymph % (Auto) [place] % (Auto) Eos % (Auto) Baso % (Auto) Neut # (Auto) Lymph # (Auto) [place] # (Auto) Eos # (Auto) Baso # (Auto) D-Dimer Sodium 135 L Potassium 3.2 L Chloride 102 Carbon Dioxide 23 BUN 6 L Creatinine 0.86 Estimated GFR > 60.0 BUN/Creatinine Ratio 7.0 Glucose 120 H Lactate 0.9 Calcium 8.1 L Ferritin 463 H Total Bilirubin 0.3 AST 60 H ALT 50 H Alkaline Phosphatase 70 Lactate Dehydrogenase 938 H Total Creatine Kinase 43 CK-MB (CK-2) TNP CK-MB (CK-2) Rel Index TNP Troponin I < 0.012 C-Reactive Protein 18.1 H NT-Pro-B Natriuret Pep 54 Total Protein 7.3 Albumin 3.8 Globulin 3.5 Albumin/Globulin Ratio 1.1 Procalcitonin Nasal Screen MRSA (PCR) Negative for mrsa Assessment & Plan Assessment & Plan narrative: Impression 1. COVID-19 pneumonia with associated acute hypoxic respiratory failure - patient is unvaccinated, both her mother and father are infected with COVID and hos pitalized - she is hypoxic - she has an elevated D-dimer of 740, however will defer CT angio at this time - continue Decadron and remdesivir - continue DVT prophylaxis - oxygen to taper is needed 2. hypokalemia - will replace patient indicates she is a full code, she reports her sister is her decision maker in the event she is unable to decide for herself. Quality VTE Deep Vein Thrombosis/Pulmonary Embolism Present on Admission: No
[2021-06-16] MEDS: POTASSIUM CHLORIDE 20 MEQ TAB 40 MEQ PO (17:51)
[2021-06-16] MEDS: DOCUSATE 100 MG CAPSULE PO (21:13)
--- NOTE | 2021-06-16 22:35 | PC.NURSE ---
A&Ox4. VSS aside from 90% O2 on 5 1/2 L nasal cannula with humidification. Patient was desating to low 80s when using the commode so patient was placed in the prone position which increased her O2 back up to 90%. Patient complained of a headache this afternoon which was relieved with PRN tylenol. She also stating having some pain from coughing consistently. SBA. PIV saline locked. Call light within reach, bed low.
[2021-06-17] VITALS (16 sets, daily range): BP systolic 107–124; BP diastolic 50–87; PULSE 52–95; RESP 18–27; TEMP 36.6–37.1; O2SAT 88–95
[2021-06-17] MEDS: ACETAMINOPHEN 325 MG TABLET 650 MG PO ×3 (01:18→17:36)
--- NOTE | 2021-06-17 01:59 | PC.NURSE ---
TOM Liriano notified pt. SPO2 in 15 liters high flow only 77% when she get up OOB to the BSC for few seconds. Instructed to take deep breath & her sat. up to 85-87%. When she's back in bed in prone position after taking deep breathing her sat. up to 93%. TOM Liriano advised me to hold gibson Catheter for now. C/O generalized pain, medicated with 650 mg. of Tylenol. Will cont. POC & monitor.
[2021-06-17 05:05] LABS: Add Manual Diff / Slide Review NO; Basophils Absolute Auto 0 /uL (0-100); Basophils Percent Auto 0.1 % (0-2); Eosinophils Absolute Auto 0 /uL (0-450); Hematocrit 38.5 % (36-46); Lymphocytes Absolute Auto 1600 /uL (1100-4500); Lymphocytes Percent Auto 28.9 % (25-40); Mean Corpuscular HGB Conc 33.7 % (30-36); Mean Corpuscular Hemoglobin 30.7 PG (26-34); Mean Corpuscular Volume 91.2 fL (80-100); Monocytes Absolute Auto 400 /uL (0-900); Monocytes Percent Auto 6.6 % (3-14); Neutrophils Absolute Auto 3500 /uL (1500-7000); Neutrophils Percent Auto 64.4 % (50-75); Platelet Count 173 X10^3/uL (150-400); Red Blood Cell Count 4.22 X10^6/uL (4.0-5.2); Red Cell Distribution Width 13.1 % (11.6-14.8); White Blood Cell Count 5.4 X10^3/uL (4.5-11.0)
[2021-06-17 05:12] LABS: Alanine Aminotransferase 48 IU/L (<35); Albumin 3.6 g/dL (3.5-5.0); Albumin Globulin Ratio 1.1 (1.0-2.8); Alkaline Phosphatase 59 U/L (38-126); Aspartate Aminotransferase 60 IU/L (14-36); BUN Creatinine Ratio 12.3 (6-22); Bilirubin Total 0.3 mg/dL (0.2-1.3); Blood Urea Nitrogen 10 mg/dL (7-17); Calcium 8.1 mg/dL (8.4-10.2); Carbon Dioxide 27 mmol/L (22-32); Chloride 103 mmol/L (98-107); Estimated Glomerular Filt Rate > 60.0 mL/min (>60); Globulin 3.4 g/dL (1.7-4.1); Glucose 108 mg/dL (70-100); HEMOLYSIS < 15 (0-50); Sodium 136 mmol/L (137-145)
[2021-06-17] MEDS: DOCUSATE 100 MG CAPSULE PO (08:52)
[2021-06-17] MEDS: REMDESIVIR 100 MG in SODIUM CHLORIDE 0.9% 230 ML 175 ML IV (08:52)
[2021-06-17] MEDS: DEXAMETHASONE 10 MG/ML VIAL 6 MG IV (08:53)
[2021-06-17] MEDS: ENOXAPARIN 40 MG/0.4 ML SYRINGE SUBCUT (08:53)
[2021-06-17] MEDS: SODIUM CHLORIDE 0.9% FLUSH 10 ML IV ×2 (08:56→21:31)
--- NOTE | 2021-06-17 11:31 | PC.NURSE ---
Day shift: Pt reports burning sensation when urinating overnight. She also reports she is starting her period and sometimes it diaz when she urinates anyway. Dr Garcia informed. Was on 15L HF NC and RT has her down to 10L HF NC (90%). Dr Garcia aware of this as well. Also had loose stools. Dr Garcia aware of loose stool also. Reports generalized aches and pains this AM. Gave her Tylenol per JAN. HR tachy at times. BP WNL. She had a shower today. SL w/ patent IV. Urine output ok. Ate approx 5% of her breakfast. She desats when eating. SHe did say this AM I feel a little more like my normal self today.
--- NOTE | 2021-06-17 14:43 | PM.PN.1 ---
Subjective Subjective Interval history: 40-year-old female unvaccinated admitted to the hospital with acute hypoxic respiratory failure due to COVID pneumonia. Patient became more hypoxic overnight. She required up to 15 L of oxygen of from 3 L at admission. She is now on 8 L of oxygen and as a saturation of 88-90%. She has some minimal nonproductive cough. She has had some nausea. She also reports some diarrhea. Exam Vital Signs (past 8 hours): - 06/17/21 08:00 06/17/21 11:01 06/17/21 11:49 Temperature 98.5 F Pulse Rate 72 Respiratory Rate 20 Blood Pressure 119/84 Pulse Oximetry 90 L 94 90 L 06/17/21 11:59 06/17/21 12:00 Temperature 98.4 F Pulse Rate 79 Respiratory Rate 18 Blood Pressure 124/69 Pulse Oximetry 90 L 88 L Oxygen Delivery Method High Flow Nasal Cannula Oxygen Flow Rate 8 Narrative Exam Narrative: Ill-appearing female lying in bed Resp Other: Lungs decreased breath sounds, occasional scattered crackles Cardio Other: Cardiac exam: Regular rate and rhythm normal S1-S2 GI Other: Abdomen: Soft nontender nondistended Extrem Other: Extremities: No edema Objective Labs Result Diagrams: 06/17/21 04:38 06/17/21 04:38 Labs: Laboratory Results - last 24 hr 06/17/21 06/17/21 04:38 04:38 WBC 5.4 RBC 4.22 Hgb 13.0 Hct 38.5 MCV 91.2 MCH 30.7 MCHC 33.7 RDW 13.1 Plt Count 173 Neut % (Auto) 64.4 Lymph % (Auto) 28.9 [place] % (Auto) 6.6 Eos % (Auto) 0.0 L Baso % (Auto) 0.1 Neut # (Auto) 3500 Lymph # (Auto) 1600 [place] # (Auto) 400 Eos # (Auto) 0 Baso # (Auto) 0 Sodium 136 L Potassium 4.0 Chloride 103 Carbon Dioxide 27 BUN 10 Creatinine 0.81 Estimated GFR > 60.0 BUN/Creatinine Ratio 12.3 Glucose 108 H Calcium 8.1 L Total Bilirubin 0.3 AST 60 H ALT 48 H Alkaline Phosphatase 59 Total Protein 7.0 Albumin 3.6 Globulin 3.4 Albumin/Globulin Ratio 1.1 [facility] Medical History No pertinent family history Patient denies significant medical history Surgical History No pertinent past surgical history Family History (Updated 06/16/21 @ 16:33 by Su Garcia MD) Mother Pneumonia due to COVID-19 virus Father Pneumonia due to COVID-19 virus Social History household members: family Smoking Status: Never smoker Assessment & Plan Assessment & Plan narrative: 1. Acute hypoxic respiratory failure secondary to COVID-19 pneumonia -patient has become significantly more hypoxic overnight -she is now on 8 L of oxygen down from 15 L -will continue remdesivir and Decadron -will continue to taper oxygen as tolerated -DVT prophylaxis -will follow-up on labs in the morning I have utilized all available immediate resources to obtain update or renew the patient's current medication Quality VTE Deep Vein Thrombosis/Pulmonary Embolism Present on Admission: No
--- NOTE | 2021-06-17 15:30 | DIET.PN ---
Dietary Progress Note Assessment: 40 y/o F admitted with respiratory failure. Covid +. Nausea and diarrhea per provider notes. Poor PO (0-10%). Intervention: 1. Added ONS Ensure max TID to support protein and micronutrient needs for this high BMI pt 2. Modified diet to easy chew to encourage better PO with reported nausea G[address], [facility]
[2021-06-17] MEDS: IBUPROFEN 600 MG TABLET PO (21:36)
[2021-06-18] VITALS (16 sets, daily range): BP systolic 101–114; BP diastolic 52–74; PULSE 52–75; RESP 15–26; TEMP 36.2–36.8; O2SAT 86–96
--- NOTE | 2021-06-18 03:14 | PC.NURSE ---
spoke with sister Domtiila who phoned earlier. Patient gave me permission to speak with her. Updated her on oxygenation status and that patient denied pain at this time. Patient said to tell her she was feeling better.
[2021-06-18] MEDS: ACETAMINOPHEN 325 MG TABLET 650 MG PO ×2 (06:48→16:07)
[2021-06-18] MEDS: ENOXAPARIN 40 MG/0.4 ML SYRINGE SUBCUT (08:58)
[2021-06-18] MEDS: REMDESIVIR 100 MG in SODIUM CHLORIDE 0.9% 230 ML 250 ML IV (08:59)
[2021-06-18] MEDS: DEXAMETHASONE 10 MG/ML VIAL 6 MG IV (09:00)
[2021-06-18] MEDS: DOCUSATE 100 MG CAPSULE PO (09:01)
[2021-06-18] MEDS: SODIUM CHLORIDE 0.9% FLUSH 10 ML IV ×3 (09:01→20:48)
[2021-06-18] MEDS: IBUPROFEN 600 MG TABLET PO ×2 (09:04→18:52)
--- NOTE | 2021-06-18 10:35 | DI.RAD.S_ITS ---
PROCEDURE: XR CHEST 1V INDICATIONS: sob, covid, worsening hypoxemia TECHNIQUE: One view of the chest was acquired. COMPARISON: [facility], CR, XR CHEST 1V, 06/16/2021, 7:43. FINDINGS: Surgical changes and devices: None. Lungs and pleura: Mild left greater than right bibasilar airspace opacities. No pleural effusions or pneumothorax. Mediastinum: Mediastinal contours appear normal. Heart size is normal. Bones and chest wall: No suspicious bony lesions. Overlying soft tissues appear unremarkable. IMPRESSION: No change in bibasilar pneumonia. Dictated by: Sharmin Wilson M.D. on 06/18/2021 at 10:02 Approved by: Sharmin Wilson M.D. on 06/18/2021 at 10:02
[2021-06-18 11:27] LABS: Hematocrit 39.4 % (36-46); Hemoglobin 13.4 g/dL (12.0-16.0); Mean Corpuscular HGB Conc 33.9 % (30-36); Mean Corpuscular Volume 91.2 fL (80-100); Platelet Count 204 X10^3/uL (150-400); Red Blood Cell Count 4.32 X10^6/uL (4.0-5.2); Red Cell Distribution Width 13.4 % (11.6-14.8); White Blood Cell Count 3.9 X10^3/uL (4.5-11.0)
[2021-06-18 11:42] LABS: D Dimer 595 ng/mL (<230)
[2021-06-18 11:45] LABS: BUN Creatinine Ratio 22.1 (6-22); Blood Urea Nitrogen 15 mg/dL (7-17); Calcium 8.4 mg/dL (8.4-10.2); Carbon Dioxide 26 mmol/L (22-32); Chloride 105 mmol/L (98-107); Estimated Glomerular Filt Rate > 60.0 mL/min (>60); Glucose 164 mg/dL (70-100); HEMOLYSIS < 15 (0-50); Lactate Dehydrogenase 965 U/L (313-618); Potassium 3.9 mmol/L (3.4-5.1); Sodium 138 mmol/L (137-145)
--- NOTE | 2021-06-18 11:46 | PC.NURSE ---
pt transferred to icu for increased observation and increased oxygen needs- pt is compliant with all that is requested
[2021-06-18 11:59] LABS: Fractionated Inspired Oxygen 90; HCO3 ABG 24 mmol/L (22-26); Oxygen Saturation ABG 96 % (95-100); PCO2 ABG 31.3 mmHg (35-45); PO2 ABG 73 mmHg (80-100); TCO2 ABG 25 mmol/L (21-31)
[2021-06-18 12:03] LABS: Procalcitonin 0.13 ng/mL (<0.5)
--- NOTE | 2021-06-18 12:13 | PC.NURSE ---
This morning patient requiring increased oxygen to maintain saturation levels. She states she actually slept better last night, and is disappointed that she is not doing better. Placed on heated high flow by RT initially requiring 60L at 87% fio2 to keep at 88% spo2. Dr. Baker notified of increasing requirements and patient transferred to ICU for closer monitoring. Patient updated on plan of care, and is agreeable although she is feeling emotional stating yeah I don't want to from this crap. Transferred to room 228 with all her belongings. Right AC IV intact.
--- NOTE | 2021-06-18 12:36 | DI.RAD.S_ITS ---
PROCEDURE: XR CHEST 1V INDICATIONS: PICC placement TECHNIQUE: One view of the chest was acquired. COMPARISON: [facility], CR, XR CHEST 1V, 06/18/2021, 10:37. FINDINGS: Surgical changes and devices: Right upper extremity PICC terminates in the region of the brachiocephalic vein or upper SVC, with distal tip projecting over the region of the linsey, somewhat obscured by an EKG lead. Lungs and pleura: Lungs are clear. No pleural effusions or pneumothorax. Mediastinum: Mediastinal contours appear normal. Heart size is normal. Bones and chest wall: No suspicious bony lesions. Overlying soft tissues appear unremarkable. IMPRESSION: Right upper extremity PICC terminates in the region of the brachiocephalic vein or upper SVC. Dictated by: Oswald Brooks M.D. on 06/18/2021 at 13:10 Approved by: Oswald Brooks M.D. on 06/18/2021 at 13:11
[2021-06-18 13:34] LABS: Alanine Aminotransferase 38 IU/L (<35); Albumin 3.4 g/dL (3.5-5.0); Albumin Globulin Ratio 0.9 (1.0-2.8); Alkaline Phosphatase 66 U/L (38-126); Aspartate Aminotransferase 53 IU/L (14-36); Bilirubin Total 0.4 mg/dL (0.2-1.3); Bilirubin Unconjugated 0.2 mg/dL (0.0-1.1); Globulin 3.6 g/dL (1.7-4.1); HEMOLYSIS < 15 (0-50)
[2021-06-18 14:09] LABS: Ferritin 600 ng/mL (6-137)
--- NOTE | 2021-06-18 14:30 | PM.PN.1 ---
Subjective Subjective Date Patient Seen: 06/18/21 Time Patient Seen: 08:00 Interval history: Today she was feeling more short of breath. She was not coughing, no chest pain. She had a desaturation to the 80s and was placed on heated high flow. She had chest xray done that showed stable pneumonia. She had abg done that showed paO2 at 73 on 90% FiO2. Exam Vital Signs (past 8 hours): - 06/18/21 08:30 06/18/21 09:00 06/18/21 11:44 Temperature Pulse Rate 60 55 L Respiratory Rate 20 22 18 Blood Pressure 101/74 Pulse Oximetry 86 L 89 L 96 06/18/21 12:00 Temperature 98.2 F Pulse Rate 75 Respiratory Rate 18 Blood Pressure 105/74 Pulse Oximetry 92 Fraction of Inspired Oxygen 0.56 Oxygen Delivery Method Heated High Flow Oxygen Flow Rate 45 Narrative Exam Narrative: GEN: ill appearing, moderate respiratory distress CV: regular rate and rhythm with no murmurs PULM: poor air movement, coarse breath sounds ABD: soft, nontender, nondistended, no organomegaly EXT: warm and well perfused with no edema NEURO: awake, alert and oriented Objective Labs Result Diagrams: 06/18/21 11:20 06/18/21 11:20 Labs: Laboratory Results - last 24 hr 06/18/21 06/18/21 06/18/21 11:00 11:20 11:20 WBC 3.9 L RBC 4.32 Hgb 13.4 Hct 39.4 MCV 91.2 MCH 31.0 MCHC 33.9 RDW 13.4 Plt Count 204 D-Dimer 595 H ABG pH 7.50 H ABG pCO2 31.3 L ABG pO2 73 L ABG HCO3 24 ABG Total CO2 25 ABG O2 Saturation 96 ABG Base Excess 1.0 FiO2 90 Sodium Potassium Chloride Carbon Dioxide BUN Creatinine Estimated GFR BUN/Creatinine Ratio Glucose Calcium Ferritin Total Bilirubin Conjugated Bilirubin Unconjugated Bilirubin AST ALT Alkaline Phosphatase Lactate Dehydrogenase Total Protein Albumin Globulin Albumin/Globulin Ratio Procalcitonin 06/18/21 06/18/21 11:20 11:20 WBC RBC Hgb Hct MCV MCH MCHC RDW Plt Count D-Dimer ABG pH ABG pCO2 ABG pO2 ABG HCO3 ABG Total CO2 ABG O2 Saturation ABG Base Excess FiO2 Sodium 138 Potassium 3.9 Chloride 105 Carbon Dioxide 26 BUN 15 Creatinine 0.68 Estimated GFR > 60.0 BUN/Creatinine Ratio 22.1 H Glucose 164 H Calcium 8.4 Ferritin 600 H Total Bilirubin 0.4 Conjugated Bilirubin 0.0 Unconjugated Bilirubin 0.2 AST 53 H ALT 38 H Alkaline Phosphatase 66 Lactate Dehydrogenase 965 H Total Protein 7.0 Albumin 3.4 L Globulin 3.6 Albumin/Globulin Ratio 0.9 L Procalcitonin 0.13 PFSH Medical History No pertinent family history Patient denies significant medical history Surgical History No pertinent past surgical history Family History (Updated 06/16/21 @ 16:33 by Su Garcia MD) Mother Pneumonia due to COVID-19 virus Father Pneumonia due to COVID-19 virus Social History household members: family Smoking Status: Never smoker Assessment & Plan Assessment & Plan narrative: Ms. Knutson is a 40W with acute hypoxemic respiratory failure from COVID pneumonia. 1. Acute hypoxic respiratory failure secondary to COVID-19 pneumonia -patient has become significantly more hypoxemic overnight -she is now on heated high flow oxygen, will attempt to wean -will continue remdesivir and Decadron -trend ldh, ddimer, inflammatory markers, lfts -oxygen has been increased to high flow heated on 06/18, no evidence of new pneuonia, procal negative so unlikely superimposed pneumonia -DVT prophylaxis with lovenox 40UJ CODE: Full code Quality VTE Deep Vein Thrombosis/Pulmonary Embolism Present on Admission: No
[2021-06-19] VITALS (17 sets, daily range): BP systolic 99–124; BP diastolic 57–71; PULSE 39–56; RESP 10–25; TEMP 36.4–36.8; O2SAT 91–99
--- NOTE | 2021-06-19 01:12 | PC.NURSE ---
Addendum entered by Alesia Troy R.N. 06/19/21 02:38: Pt with persistent bradycardia, as low as 38 bpm. Pt denies any symptoms at this time, usually is sleeping during lowest HR. Rest of VSS. Original Note: Noc shift Pt requesting to prone @ 2300, assisted into position. Reporting no pain and decreased SOB. HHFNC @ 45L and 60% Fio2 at present, with Spo2 94-98% Lungs dim, persistent hacking cough. After ~30 minutes, Pt requesting to return to a different position. Recommending Pt continue to attempt proning as this is the best treatment for best Pt outcome, I am aware, I am uncomfortable Assisted Pt to side lie after discussion, and Pt reporting increased comfort. Declines offer of Ibuprofen. Call light in reach.
[2021-06-19] MEDS: IBUPROFEN 600 MG TABLET PO (04:49)
[2021-06-19] MEDS: SODIUM CHLORIDE 0.9% FLUSH 10 ML IV ×3 (04:50→19:12)
--- NOTE | 2021-06-19 05:08 | PC.NURSE ---
PT AWOKE EMOTIONAL- SHE WAS ANXIOUS AND SOBBING RE: O2 TUBING, MENSTRUAL CRAMPS, STUFFY/RUNNY NOSE, THE BEDDING ETC. MUCH TIME SPENT WITH PT AND GETTING HER ORGANIZED AND COMFORTABLE- MEDICATED WITH PO IBUPROFEN FOR PREVIOUS STATED COMPLAINTS AND REQUIRED INCREASE IN O2 NEEDS FROM 45L/60% to 45L/65% and then to 70%- presently resting comfortably with music playing on her personal phone and SPO2 92% RR 19- Pt is bradycardic in the 39-49 range during rest
[2021-06-19 05:45] LABS: Hematocrit 38.6 % (36-46); Hemoglobin 12.9 g/dL (12.0-16.0); Mean Corpuscular HGB Conc 33.4 % (30-36); Mean Corpuscular Hemoglobin 30.4 PG (26-34); Platelet Count 232 X10^3/uL (150-400); Red Blood Cell Count 4.24 X10^6/uL (4.0-5.2); Red Cell Distribution Width 13.5 % (11.6-14.8); White Blood Cell Count 6.3 X10^3/uL (4.5-11.0)
[2021-06-19 05:54] LABS: BUN Creatinine Ratio 28.8 (6-22); Blood Urea Nitrogen 19 mg/dL (7-17); Calcium 8.4 mg/dL (8.4-10.2); Carbon Dioxide 25 mmol/L (22-32); Chloride 106 mmol/L (98-107); Estimated Glomerular Filt Rate > 60.0 mL/min (>60); Glucose 124 mg/dL (70-100); HEMOLYSIS < 15 (0-50); Potassium 3.8 mmol/L (3.4-5.1); Sodium 139 mmol/L (137-145)
[2021-06-19] MEDS: DEXAMETHASONE 10 MG/ML VIAL 6 MG IV (08:22)
[2021-06-19] MEDS: ACETAMINOPHEN 325 MG TABLET 650 MG PO ×2 (08:22→15:27)
[2021-06-19] MEDS: DOCUSATE 100 MG CAPSULE PO ×2 (08:22→19:10)
[2021-06-19] MEDS: ENOXAPARIN 40 MG/0.4 ML SYRINGE SUBCUT (08:22)
--- NOTE | 2021-06-19 09:04 | PC.NURSE ---
Addendum entered by Cony Man R.N. 06/19/21 10:10: ASSISTED PT TO SHOWER AND SHE BATHED INDEPENDENTLY WHILE ON 15 L HFNC ( WHICH PROVED TO BE MUCH MORE COMFORTABLE FOR PT) PASSING GAS ONLY BUT FEELS BM IS IMMINENT THIS DATE- SHE ATE GOOD BREAKFAST AND IS PRONING AT THIS TIME ON 12 L HFNC WITH SPO2 98% Original Note: pt reports cramping in lower abdomen from her menses- medicated alternately with ibuprofen and tylenol, also no bm for couple of days so she is receiving docusate- traded to regular high flow cannula at 15L FROM HEATED HIGH FLOW fjor pt comfort- present spo2 92% and pt reports much more comfort-
[2021-06-19] MEDS: REMDESIVIR 100 MG in SODIUM CHLORIDE 0.9% 230 ML 250 ML IV (09:13)
--- NOTE | 2021-06-19 13:09 | P.PN_ITS ---
Subjective Subjective Date Patient Seen: 06/19/21 Time Patient Seen: 08:00 Interval history: She had a tough night she says, trouble sleeping, unable to prone, short of breath. But she is feeling much better this morning. She is willing to try to prone today, and her oxygen levels have improved when she does prone. Exam Vital Signs (past 8 hours): - 06/19/21 05:50 06/19/21 07:30 06/19/21 07:36 Temperature 97.5 F L Pulse Rate 56 L 43 L Respiratory Rate 22 25 H Blood Pressure 99/57 L Pulse Oximetry 92 93 92 06/19/21 10:10 06/19/21 10:14 06/19/21 11:46 Temperature Pulse Rate 50 L Respiratory Rate 20 Blood Pressure Pulse Oximetry 98 98 98 06/19/21 12:00 06/19/21 12:42 Temperature 97.5 F L Pulse Rate 55 L 45 L Respiratory Rate 17 16 Blood Pressure 103/60 Pulse Oximetry 99 98 Fraction of Inspired Oxygen 60 Oxygen Delivery Method High Flow Nasal Cannula Oxygen Flow Rate 10 Narrative Exam Narrative: EN: ill appearing, mild respiratory distress CV: regular rate and rhythm with no murmurs PULM: poor air movement, coarse breath sounds ABD: soft, nontender, nondistended, no organomegaly EXT: warm and well perfused with no edema NEURO: awake, alert and oriented Objective Labs Result Diagrams: 06/19/21 04:40 06/19/21 04:40 Labs: Laboratory Results - last 24 hr 06/18/21 06/19/21 06/19/21 11:20 04:40 04:40 WBC 6.3 D RBC 4.24 Hgb 12.9 Hct 38.6 MCV 91.0 MCH 30.4 MCHC 33.4 RDW 13.5 Plt Count 232 Sodium 139 Potassium 3.8 Chloride 106 Carbon Dioxide 25 BUN 19 H Creatinine 0.66 Estimated GFR > 60.0 BUN/Creatinine Ratio 28.8 H Glucose 124 H Calcium 8.4 Ferritin 600 H Total Bilirubin 0.4 Conjugated Bilirubin 0.0 Unconjugated Bilirubin 0.2 AST 53 H ALT 38 H Alkaline Phosphatase 66 Total Protein 7.0 Albumin 3.4 L Globulin 3.6 Albumin/Globulin Ratio 0.9 L PFSH Medical History No pertinent family history Patient denies significant medical history Surgical History No pertinent past surgical history Family History (Updated 06/16/21 @ 16:33 by Su Garcia MD) Mother Pneumonia due to COVID-19 virus Father Pneumonia due to COVID-19 virus Social History household members: family Smoking Status: Never smoker Assessment & Plan Assessment & Plan narrative: Ms. Knutson is a 40W with acute hypoxemic respiratory failure from COVID pneumonia. 1. Acute hypoxic respiratory failure secondary to COVID-19 pneumonia -patient has become significantly more hypoxemic overnight -she is now on heated high flow oxygen, will attempt to wean -will continue decadron -oxygen has been increased to high flow heated on 06/18, no evidence of new p neumonia, procal negative so unlikely superimposed pneumonia -DVT prophylaxis with lovenox 40UJ -improved to 10L O2 on 06/19, her O2 especially improves with proning 2. Bradycardia -new, noted as low as 30s overnight -presumed from remdesivir, will stop remdesivir now and continue decadron CODE: Full code Quality VTE Deep Vein Thrombosis/Pulmonary Embolism Present on Admission: No
[2021-06-20] VITALS (16 sets, daily range): BP systolic 101–129; BP diastolic 64–75; PULSE 43–81; RESP 16–20; TEMP 36.1–36.6; O2SAT 89–98
--- NOTE | 2021-06-20 02:43 | PC.NURSE ---
Patient proning since 2100 last evening. O2 sats on 10 L ranging between 94-97%. Denies pain. Church draining clear, yellow urine. Fine crackles noted L post base and diminished kitty throughout. Patient agreeable to call for assistance when needing to get OOB or for questions and concerns. TOM Liriano notified of HR continuing in the 30s and 40s. Discussed patient's request for Melatonin. TOM to order with intention to start tomorrow at hs.
[2021-06-20] MEDS: SODIUM CHLORIDE 0.9% FLUSH 10 ML IV ×3 (04:40→21:49)
[2021-06-20 05:28] LABS: Hematocrit 39.8 % (36-46); Hemoglobin 13.3 g/dL (12.0-16.0); Mean Corpuscular HGB Conc 33.5 % (30-36); Mean Corpuscular Hemoglobin 30.6 PG (26-34); Mean Corpuscular Volume 91.4 fL (80-100); Platelet Count 236 X10^3/uL (150-400); Red Blood Cell Count 4.36 X10^6/uL (4.0-5.2); Red Cell Distribution Width 13.1 % (11.6-14.8); White Blood Cell Count 6.9 X10^3/uL (4.5-11.0)
[2021-06-20 05:34] LABS: BUN Creatinine Ratio 32.8 (6-22); Blood Urea Nitrogen 21 mg/dL (7-17); Calcium 8.7 mg/dL (8.4-10.2); Carbon Dioxide 26 mmol/L (22-32); Chloride 107 mmol/L (98-107); Estimated Glomerular Filt Rate > 60.0 mL/min (>60); Glucose 130 mg/dL (70-100); HEMOLYSIS < 15 (0-50); Potassium 4.2 mmol/L (3.4-5.1); Sodium 139 mmol/L (137-145)
[2021-06-20] MEDS: ENOXAPARIN 40 MG/0.4 ML SYRINGE SUBCUT (09:44)
[2021-06-20] MEDS: DOCUSATE 100 MG CAPSULE PO ×2 (09:44→21:48)
[2021-06-20] MEDS: DEXAMETHASONE 10 MG/ML VIAL 6 MG IV (09:44)
--- NOTE | 2021-06-20 13:27 | DIET.PN ---
Dietary Progress Note RD Note: Pt referred to nutrition for poor POs. Per chart review pt consumed 100% POs today with addition of ONS.
--- NOTE | 2021-06-20 13:32 | PM.PN.1 ---
Subjective Subjective Date Patient Seen: 06/20/21 Time Patient Seen: 08:00 Interval history: Today she feels much improved. Her shortness of breath is much improved. She is 98% on 10L oxygen. Exam Vital Signs (past 8 hours): - 06/20/21 06:13 06/20/21 08:14 06/20/21 08:51 Temperature Pulse Rate 48 L 79 Respiratory Rate 18 Blood Pressure 115/64 Pulse Oximetry 98 91 89 L 06/20/21 10:00 06/20/21 10:38 06/20/21 12:00 Temperature 97.8 F 97.5 F L Pulse Rate 61 81 Respiratory Rate 19 20 Blood Pressure 101/65 Pulse Oximetry 94 93 89 L Fraction of Inspired Oxygen 60 Oxygen Delivery Method High Flow Nasal Cannula Oxygen Flow Rate 4 Narrative Exam Narrative: GEN: no acute distress CV: regular rate and rhythm with no murmurs PULM: poor air movement, coarse breath sounds ABD: soft, nontender, nondistended, no organomegaly EXT: warm and well perfused with no edema NEURO: awake, alert and oriented Objective Labs Result Diagrams: 06/20/21 05:00 06/20/21 05:00 Labs: Laboratory Results - last 24 hr 06/20/21 06/20/21 05:00 05:00 WBC 6.9 RBC 4.36 Hgb 13.3 Hct 39.8 MCV 91.4 MCH 30.6 MCHC 33.5 RDW 13.1 Plt Count 236 Sodium 139 Potassium 4.2 Chloride 107 Carbon Dioxide 26 BUN 21 H Creatinine 0.64 Estimated GFR > 60.0 BUN/Creatinine Ratio 32.8 H Glucose 130 H Calcium 8.7 PFSH Medical History No pertinent family history Patient denies significant medical history Surgical History No pertinent past surgical history Family History (Updated 06/16/21 @ 16:33 by Su Garcia MD) Mother Pneumonia due to COVID-19 virus Father Pneumonia due to COVID-19 virus Social History household members: family Smoking Status: Never smoker Assessment & Plan Assessment & Plan narrative: Ms. Knutson is a 40W with acute hypoxemic respiratory failure from COVID pneumonia. 1. Acute hypoxic respiratory failure secondary to COVID-19 pneumonia -patient has become significantly more hypoxemic overnight -she is now on heated high flow oxygen, will attempt to wean -will continue decadron -oxygen has been increased to high flow heated on 06/18, no evidence of new pneumonia, procal negative so unlikely superimposed pneumonia -DVT prophylaxis with lovenox 40UJ -improved to 10L O2 on 06/19, her O2 especially improves with proning 2. Bradycardia -new, noted as low as 30s overnight -presumed from remdesivir, will stop remdesivir now and continue decadron CODE: Full code Quality VTE Deep Vein Thrombosis/Pulmonary Embolism Present on Admission: No
--- NOTE | 2021-06-20 15:24 | CM.DPC ---
DCP Cont: Per MD, pt is improving and has been able to tolerate diet more and decreased oxygen needs and may be stable for d/c to home in a couple more days. Pt's mother recently discharged home from the hospital after testing positive for COVID and was opened to [facility]. Plan: SW to follow closely for likely d/c home in a couple days when medically stable and any further identified discharge planning needs. FRANCISCO Rios
[2021-06-20] MEDS: MELATONIN 3 MG TABLET 9 MG PO (21:48)
[2021-06-21] VITALS (12 sets, daily range): BP systolic 111–130; BP diastolic 60–74; PULSE 39–63; RESP 16–22; TEMP 36.4–37; O2SAT 88–94
[2021-06-21] MEDS: SODIUM CHLORIDE 0.9% FLUSH 10 ML IV ×3 (05:29→21:07)
[2021-06-21 06:09] LABS: Hematocrit 39.2 % (36-46); Hemoglobin 13.3 g/dL (12.0-16.0); Mean Corpuscular HGB Conc 33.9 % (30-36); Mean Corpuscular Hemoglobin 30.5 PG (26-34); Mean Corpuscular Volume 90.2 fL (80-100); Platelet Count 240 X10^3/uL (150-400); Red Blood Cell Count 4.35 X10^6/uL (4.0-5.2); Red Cell Distribution Width 13.2 % (11.6-14.8); White Blood Cell Count 8.1 X10^3/uL (4.5-11.0)
[2021-06-21 06:15] LABS: BUN Creatinine Ratio 31.9 (6-22); Blood Urea Nitrogen 22 mg/dL (7-17); Calcium 8.6 mg/dL (8.4-10.2); Carbon Dioxide 29 mmol/L (22-32); Chloride 104 mmol/L (98-107); Estimated Glomerular Filt Rate > 60.0 mL/min (>60); Glucose 115 mg/dL (70-100); HEMOLYSIS < 15 (0-50); Sodium 139 mmol/L (137-145)
[2021-06-21] MEDS: DEXAMETHASONE 10 MG/ML VIAL 6 MG IV (09:49)
[2021-06-21] MEDS: DOCUSATE 100 MG CAPSULE PO ×2 (09:49→21:07)
[2021-06-21] MEDS: ENOXAPARIN 40 MG/0.4 ML SYRINGE SUBCUT (09:49)
--- NOTE | 2021-06-21 15:27 | PM.PN.1 ---
Subjective Subjective Date Patient Seen: 06/21/21 Time Patient Seen: 08:00 Interval history: Today she feels like she is getting slightly stronger. Still short of breath with activity. She desaturates to the 80s when her oxygen is turned off. Exam Vital Signs (past 8 hours): - 06/21/21 07:31 06/21/21 07:32 06/21/21 07:33 Temperature Pulse Rate Respiratory Rate 16 Blood Pressure Pulse Oximetry 92 88 L 91 06/21/21 08:30 06/21/21 11:00 Temperature 97.9 F Pulse Rate 53 L Respiratory Rate 16 Blood Pressure 117/63 Pulse Oximetry 92 93 Fraction of Inspired Oxygen 60 Oxygen Delivery Method Nasal Cannula Oxygen Flow Rate 1 Narrative Exam Narrative: GEN: no acute distress CV: regular rate and rhythm with no murmurs PULM: poor air movement, coarse breath sounds ABD: soft, nontender, nondistended, no organomegaly EXT: warm and well perfused with no edema NEURO: awake, alert and oriented Objective Labs Result Diagrams: 06/21/21 05:30 06/21/21 05:30 Labs: Laboratory Results - last 24 hr 06/21/21 06/21/21 05:30 05:30 WBC 8.1 RBC 4.35 Hgb 13.3 Hct 39.2 MCV 90.2 MCH 30.5 MCHC 33.9 RDW 13.2 Plt Count 240 Sodium 139 Potassium 4.0 Chloride 104 Carbon Dioxide 29 BUN 22 H Creatinine 0.69 Estimated GFR > 60.0 BUN/Creatinine Ratio 31.9 H Glucose 115 H Calcium 8.6 PFSH Medical History No pertinent family history Patient denies significant medical history Surgical History No pertinent past surgical history Family History (Updated 06/16/21 @ 16:33 by Su Garcia MD) Mother Pneumonia due to COVID-19 virus Father Pneumonia due to COVID-19 virus Social History household members: family Smoking Status: Never smoker Assessment & Plan Assessment & Plan narrative: Ms. Knutson is a 40W with acute hypoxemic respiratory failure from COVID pneumonia. 1. Acute hypoxic respiratory failure secondary to COVID-19 pneumonia -she was on heated high flow oxygen, will attempt to wean -will continue decadron -oxygen has been increased to high flow heated on 06/18, no evidence of new pneumonia, procal negative so unlikely superimposed pneumonia -DVT prophylaxis with lovenox 40U -improved to 1-2L O2 on 06/21, her O2 especially improves with proning 2. Bradycardia, resolved -new, noted as low as 30s overnight -presumed from remdesivir, improved with stopping remdesivir 3. Obesity, BMI 37.5 -encouraged outpatient follow up with PCP CODE: Full code Quality VTE Deep Vein Thrombosis/Pulmonary Embolism Present on Admission: No
[2021-06-21] MEDS: MELATONIN 3 MG TABLET 9 MG PO (21:07)
[2021-06-22 03:48] VITALS: O2SAT 93
[2021-06-22 06:00] VITALS: BP 124/67; PULSE 49; RESP 20; TEMP 36.4; O2SAT 94
[2021-06-22 07:40] VITALS: O2SAT 94
[2021-06-22 08:00] VITALS: BP 107/70; PULSE 84; RESP 18; TEMP 36.7; O2SAT 92; O2SAT 93
[2021-06-22] MEDS: DEXAMETHASONE 10 MG/ML VIAL 6 MG IV (09:25)
[2021-06-22] MEDS: SODIUM CHLORIDE 0.9% FLUSH 10 ML IV (09:25)
[2021-06-22] MEDS: DOCUSATE 100 MG CAPSULE PO (09:25)
[2021-06-22] MEDS: ENOXAPARIN 40 MG/0.4 ML SYRINGE SUBCUT (09:25)
--- NOTE | 2021-06-22 09:52 | P.DS_ITS ---
History of Present Illness History of Present Illness Chief complaint: DIFFICULTY BREATHING Narrative: Per Dr. Garcia: The patient is a 40-year-old female who has not been vaccinated against COVID-19 who presents with a week of symptoms to include cough decreased appetite and decreased smell. The patient's mother is here hospitalized with COVID-19 pneumonia. In addition her father is in the emergency department with symptoms due to COVID-19. The patient has had some nausea and vomiting. She has had progressive shortness of breath. She has had nonproductive cough. She developed a low-grade fever. Patient was seen and examined in the emergency department. She was found to have a white count of 5.2. Chest x-ray showed ill-defined patchy consolidations suspicious for pneumonia. Patient did test positive for COVID-19. Discharge Providers Provider Date of admission: 06/16/21 09:22 Discharge Date: 06/22/21 Consults: 06/16/21 14:26 Consult to Dietitian, Adult Routine Comment: Reason For Exam: admission prompted 06/17/21 12:00 Consult to Respiratory Therapy Evaluate & Treat Comment: Physician Instructions: Evaluate and treat Discharge provider: Jay Baker MD Summary Hospital Course Discharge Diagnosis: 1. Acute hypoxemic respiratory failure 2. Bradycardia 3. Obesity, BMI 37.5 Hospital Course: Ms. Knutson was admitted with hypoxemic respiratory failure due to COVID pneumonia. She did require heated high flow oxygen. She was on dexamethasone and remdesivir. She did have episodes of bradycardia possibly secondary to remdesivir. She improved in the hospital and on day of discharge was off oxygen. She was encouraged to continue isolating while symptomatic and to get the COVID vaccine as soon as her symptoms resolved. Exam Vital Signs (past 8 hours): Fraction of Inspired Oxygen 60 Oxygen Delivery Method Room Air Oxygen Flow Rate 0 Narrative Exam Narrative: GEN: no acute distress CV: regular rate and rhythm with no murmurs PULM: poor air movement, coarse breath sounds ABD: soft, nontender, nondistended, no organomegaly EXT: warm and well perfused with no edema NEURO: awake, alert and oriented Objective Labs Result Diagrams: 06/21/21 05:30 06/21/21 05:30 [facility] Medical History No pertinent family history Patient denies significant medical history Surgical History No pertinent past surgical history Family History (Updated 06/16/21 @ 16:33 by uS Garcia MD) Mother Pneumonia due to COVID-19 virus Father Pneumonia due to COVID-19 virus Social History household members: family Smoking Status: Never smoker Discharge Plan Discharge Plan Patient Disposition: Home Provider Discharge Comment: Ms. Knutson was admitted with shortness of breath. She was found to have COVID pneumonia. She did improve with therapies and was able to be discharged home. She should avoid being around anyone and use a mask and isolate for another 10 days. Please get the COVID vaccine when you are completely better and asymptomatic. People are getting reinfected with COVID and the vaccine can lower your risk of getting infected again. Discharge orders & Medications Prescriptions: No Action No Known Home Medications RF: 0 Discharge Health Status Multidrug resistant organism: No MDRO Diet/Activity/Treatments Diet: Regular Visit Report/Discharge Packet Instructions: DI for COVID-19 (Suspected or Confirmed ) Quality VTE Deep Vein Thrombosis/Pulmonary Embolism Present on Admission: No
== END 2021-06-22 10:45 | disposition home or self-care (01) | DRG 177 ==
LOC: ED 07:33 → AC 09:23 → ICU 12:28 → AC 06-17 12:58 → ICU 06-20 16:04
PROVIDERS: Internal Medicine; Admitting Provider Internal Medicine; Emergency Provider Emergency Medicine; Referring Provider Emergency Medicine; Visit Provider Internal Medicine
DX: U07.1 COVID-19 (principal); J12.82 Pneumonia due to coronavirus disease 2019; J96.01 Acute respiratory failure with hypoxia; E87.6 Hypokalemia; R00.1 Bradycardia, unspecified; T50.995A Adverse effect of other drugs, medicaments and biological substances, initial encounter
CPT/HCPCS: 36415; 36569; 36592; 36600; 71045; 80048; 80053; 80076; 82550; 82728; 82805; 83605; 83615; 83880; 84145; 84484; 85025; 85027; 85379; 86140; 87040; 87797; 94760; 94762; 96365; 96375; 99284; J0330; J1100; J1642; J1650; J2704

== ENCOUNTER → 2021-07-22 13:44 | Outpatient (CLI) | payer BC, SELFPAY ==
[2021-06-16 09:34] VITALS: BMI 38.3
--- NOTE | 2021-07-22 13:47 | DI.RAD.S_ITS ---
PROCEDURE: XR ANKLE LT MIN 3V INDICATIONS: swollen and painful ankle TECHNIQUE: 3 views of the ankle were acquired. COMPARISON: None. FINDINGS: Bones: No fractures or dislocations. Ankle mortise is normally aligned. No suspicious bony lesions. Soft tissues: No tibiotalar joint effusion. Achilles tendon appears normal. Lateral soft tissue swelling is noted and ligamentous injury cannot be excluded. IMPRESSION: No fracture. No osseous lesion. If symptoms and/or clinical suspicion for pathology persists, further assessment with repeat radiographs (7-10 days) or advanced imaging (e.g. CT, MRI or bone scan) should be considered. Dictated by: Deanne Bunn MD, PhD on 07/22/2021 at 14:15 Approved by: Deanne Bunn MD, PhD on 07/22/2021 at 14:16
== END ==
PROVIDERS: Referring Provider Nurse Practitioner; Visit Provider Nurse Practitioner
DX: M25.572 Pain in left ankle and joints of left foot (principal); M25.472 Effusion, left ankle
CPT/HCPCS: 73610

== ENCOUNTER 2021-07-22 15:00 | Emergency (ER) | payer BC, SELFPAY ==
[2021-06-16 09:34] VITALS: BMI 38.3
[2021-07-22 15:10] VITALS: BP 164/98; PULSE 99; RESP 18; TEMP 36.7; O2SAT 98; BMI 41.0
--- NOTE | 2021-07-22 18:13 | ED_ITS ---
HPI - Extremity Injury (Lower) General Chief Complaint: Extremity Injury, Lower Stated Complaint: RIGHT ANKLE SELLING HURTS TO WALK Time Seen by Provider: 07/22/21 18:03 Source: patient Mode of arrival: Ambulatory Limitations: no limitations History of Present Illness HPI Narrative: 40-year-old female with recent COVID-19 course requiring hospitalization presents with a chief complaint of some pain and swelling of her left lateral ankle for the past few days. She denies any specific injury but has increasing discomfort with ambulation and improvement with rest. She denies any calf or thigh pain. She denies any history of blood clot. 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 She denies any recent travel. She went to the walk-in clinic and based on her history and physical exam she was sent here for ultrasound to rule out DVT. Related Data Home Medications Medication Instructions Recorded Confirmed No Known Home Medications 06/17/21 07/22/21 Allergies Allergy/AdvReac Type Severity Reaction Status Date / Time No Known Drug Allergies Allergy Verified 07/22/21 15:14 Review of Systems Review of Systems Narrative: GENERAL: Denies chills, fatigue, malaise, fever, sweats. HEENT: Denies sinus pain, ear pain, sore throat, difficulty swallowing, dizziness. RESPIRATORY: Denies dyspnea, cough, wheezing, hemoptysis, sputum. CARDIOVASCULAR: Denies chest pain, palpitations, orthopnea, edema, GASTROINTESTINAL: Denies nausea, vomiting, abdominal pain, diarrhea, constipation, melena. : Denies dysuria, frequency, incontinence, hematuria, urinary retention. MUSCULOSKELETAL: See HPI SKIN: Denies rash, skin lesions, or other NEUROLOGIC: Denies weakness, headache, numbness, change in speech, confusion, seizures, incoordination. PSYCHIATRIC: No concerning psychosocial issues. 12 point review of systems is negative except for those stated above Patient History Medical History No pertinent family history Patient denies significant medical history Surgical History No pertinent past surgical history Family History Mother Pneumonia due to COVID-19 virus Father Pneumonia due to COVID-19 virus Social History household members: family Smoking Status: Never smoker Smoking Status: Never smoker alcohol intake frequency: holidays/special occasions only Substance Use Type: does not use Exam Narrative Exam Narrative: GEN: AOx3 and in mild distress EYES: Pupils are equal, round, and reactive to light and accommodation. Extraoccular muscles are intact bilaterally. There is no subconjunctival hemorrhage or exudate. CHEST: Lungs are clear to auscultation bilaterally and free of wheezes, rales, or rhonchi. Heart rate is regular rhythm, there are no murmurs, clicks, rubs, or gallops. There is no chest wall tenderness. ABD: Abdomen is soft and nontender. There is no guarding or rebound. Bowel sounds are normal in all 4 quadrants. There is no mass or organomegaly. EXT: Full painless ROM of all extremities with no loss of sensation or strength. Moderate swelling over lateral malleolus without erythema, warmth, induration or fluctuance. No pain with calf squeeze or pain along left medial thigh SKIN: Warm, pink, and dry. No erythema or rash Initial Vital Signs Initial Vital Signs: Vital Signs Temperature 98.1 F 07/22/21 15:10 Pulse Rate 99 H 07/22/21 15:10 Respiratory Rate 18 07/22/21 15:10 Blood Pressure 164/98 H 07/22/21 15:10 Pulse Oximetry 98 07/22/21 15:10 Course Vital Signs Vital signs: Vital Signs - 8 hr 07/22/21 15:10 Temperature 98.1 F Pulse Rate 99 H Respiratory Rate 18 Blood Pressure 164/98 H Pulse Oximetry 98 MDM - Extremity Injury (Lower) Imaging Data US - DVT: Radiologist's Impression: Tiffany Knutson??40??F??1980 ? Allergy/Adv: No Known Drug Allergies (More??) Close Vascular Ultrasound (Signed) Karen Lara - 07/22/21 Ankle X-Ray (Signed) Deanne Bunn - 07/22/21 Chest X-Ray (Signed) Oswald Brooks - 06/18/21 Chest X-Ray (Signed) Sharmin Wilson - 06/18/21 Telemetry Strips 06/16/21 Chest X-Ray (Signed) Osiel Argueta - 06/16/21 Launch?[address] [address] Ultrasound Report Signed Patient: Tiffany Knutson MR#: [id number] : 1980 Acct:[id number] Age/Sex: 40 / F Date of Service: 07/22/21 Loc: ED Accession Number: [id number] ?? Procedure: US periph venous low extrem lt Ordering Provider: Jeffrey Haque D.O. PROCEDURE:? US PERIPH VENOUS LOW EXTREM LT ? INDICATIONS:? PAIN AND SWELLING ? TECHNIQUE:? Real-time imaging, as well as color and pulse Doppler interrogation, were performed of the lower extremity deep veins from the inguinal ligament to the popliteal fossa.? ? COMPARISON:? None. ? FINDINGS:? The common femoral, femoral and popliteal veins are normally compressible, and free of intraluminal thrombus.? Color and pulse Doppler demonstrate normal p hasic intraluminal flow.? There is normal augmentation response to distal compression maneuver. ? ? Additional imaging of the lateral ankle in the area of swelling demonstrated trace fluid surrounding a thickened tendon at the level of the lateral malleolus. ? IMPRESSION:? 1. No left lower extremity DVT. 2. Possible tendinopathy/tendinitis in the region of the peroneus longus and brevis tendons at the ankle.? ? ? Dictated by: Karen Lara M.D. on 07/22/2021 at 19:13 ? ? Approved by: Karen Lara M.D. on 07/22/2021 at 19:16 ? [facility] Narrative Medical decision making narrative: Patient with some painful swelling over lateral ankle in the absence of injury. Multiple elements of her recent medical history put her at risk for DVT therefore ultrasound is ordered. There is no finding of DVT on this study. Furthermore, there is no warmth, erythema, calf pain or swelling noted. Cellulitis also considered, but no warmth, redness noted. Discharge Plan Departure Patient Disposition: Home Clinical Impression: Ankle swelling Qualifiers: Laterality: left Qualified Code(s): M25.472 - Effusion, left ankle Instructions: Tendinopathy Activity Restrictions/Additional Instructions: *You have been diagnosed with [left ankle swelling without evidence of DVT ] *What to do: *Please continue to take your regular medications as directed. [ ] New medication prescriptions sent to your pharmacy: [ ] [ ] New medication written as a paper prescription [x ] No new medications given *Please follow up with your primary care provider in 2-3 days, call for an appointment. Let them know you were seen in the Emergency Department and that we ask that you be seen in follow up. We will electronically transmit a record of today's note if your PCP is in our system *If you do not have a primary care provider please contact the [facility] Resource line at [phone]. They will ask some questions about your medical history and help get you set up with a doctor in the community. *Return to Emergency Department if you should have any new, worsening or concerning symptoms, such as [fever greater than 101 F, shaking chills, worsening pain, persistent vomiting or other bothersome symptoms] Prescriptions: No Action No Known Home Medications RF: 0
--- NOTE | 2021-07-22 18:21 | DI.US.S_ITS ---
PROCEDURE: US PERIPH VENOUS LOW EXTREM LT INDICATIONS: PAIN AND SWELLING TECHNIQUE: Real-time imaging, as well as color and pulse Doppler interrogation, were performed of the lower extremity deep veins from the inguinal ligament to the popliteal fossa. COMPARISON: None. FINDINGS: The common femoral, femoral and popliteal veins are normally compressible, and free of intraluminal thrombus. Color and pulse Doppler demonstrate normal phasic intraluminal flow. There is normal augmentation response to distal compression maneuver. Additional imaging of the lateral ankle in the area of swelling demonstrated trace fluid surrounding a thickened tendon at the level of the lateral malleolus. IMPRESSION: 1. No left lower extremity DVT. 2. Possible tendinopathy/tendinitis in the region of the peroneus longus and brevis tendons at the ankle. Dictated by: Karen Lara M.D. on 07/22/2021 at 19:13 Approved by: Karen Lara M.D. on 07/22/2021 at 19:16
[2021-07-22 19:01] VITALS: BP 131/79; PULSE 75; O2SAT 98
== END 2021-07-22 19:01 | disposition home or self-care (01) ==
PROVIDERS: Emergency Provider Emergency Medicine
DX: M25.472 Effusion, left ankle (principal)
CPT/HCPCS: 73610; 93971; 99281; 99283